=== PATIENT | male | born 1950 | race Asian ===

== ENCOUNTER 2021-01-06 12:56 | Emergency (ER) | payer OTHER, MEDICAID ==
[2021-01-06 13:05] VITALS: BP 164/106
[2021-01-06] MEDS ORDERED: AUGMENTIN1 TA1 PO (14:19)
[2021-01-06] MEDS ORDERED: AMOXICILLIN/CLA1 TA2 PO (14:21)
== END 2021-01-06 14:41 | disposition home or self-care (01) ==
LOC: ED 12:56
DX: S81.851A Open bite, right lower leg, initial encounter (principal); I10 Essential (primary) hypertension; W54.0XXA Bitten by dog, initial encounter; Y93.89 Activity, other specified; Y92.89 Other specified places as the place of occurrence of the external cause; Y99.8 Other external cause status
CPT/HCPCS: 90715

== ENCOUNTER 2021-01-08 15:01 | Emergency (ER) | payer OTHER, MEDICAID ==
[~2021-01-08] VITALS: Ht 167.6 cm; Wt 68.0 kg
[~2021-01-08 15:01] MED LIST: AMOXICILLIN/CLA1 TA2 PO; AUGMENTIN1 TA1 PO
[2021-01-08 15:36] VITALS: Ht 167.6 cm; Wt 68.0 kg
[2021-01-08 15:59] VITALS: BP 145/92
== END 2021-01-08 15:59 | disposition home or self-care (01) ==
LOC: ED 15:01
DX: S81.851D Open bite, right lower leg, subsequent encounter (principal); W54.0XXD Bitten by dog, subsequent encounter